=== PATIENT | female | born 1990 | race African-American/Black ===

== ENCOUNTER 2016-08-25 10:58 | Emergency (ER) | payer SELFPAY ==
--- NOTE | 2016-08-25 11:14 | NUR ---
PT REFUSES TO BE SEEN OR TRIAGED. PT SIGNED AMA FORM, VERBALIZED UNDERSTANDING OF RISK INCLUDING INJURY OR . 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 PT WALKED FROM ER WITH STEADY GAIT.
== END 2016-08-25 11:29 | disposition home or self-care (01) ==
LOC: ER 11:24
DX: Z53.21 Procedure and treatment not carried out due to patient leaving prior to being seen by health care provider (principal)

== ENCOUNTER 2017-09-12 16:18 | Emergency (ER) | payer SELFPAY ==
[~2017-09-12] VITALS: Ht 160 cm; Wt 54.4 kg
[2017-09-12 16:18] VITALS: BP 102/57
== END 2017-09-12 17:42 | disposition home or self-care (01) ==
LOC: ER 16:18
DX: O21.0 Mild hyperemesis gravidarum (principal); R79.89 Other specified abnormal findings of blood chemistry; Z3A.01 Less than 8 weeks gestation of pregnancy
CPT/HCPCS: 82962-TC; A4606; Z7610